=== PATIENT | female | born 1985 | race Caucasian/White ===

== ENCOUNTER 2018-08-13 08:02 | Day surgery (SDC) | payer MEDICAID ==
[2018-08-13] MEDS ORDERED: LACTATED RINGER'S 1,000 ML IV (09:00)
[2018-08-13 09:22] LABS: ADD MAN DIFF? NO
[2018-08-13 09:28] LABS: BASOPHILS % 0.3 % (0.0-2.0); EOSINOPHILS % 0.4 % (0.0-7.0); HEMATOCRIT 36.5 % (37.0-47.0); HEMOGLOBIN 12.1 g/dl (12.0-16.0); LYMPHOCYTES # 3.4 10^3/ul (0.8-2.9); LYMPHOCYTES % 34.9 % (15.0-51.0); MEAN CORPUSCULAR HEMOGLOBIN 32.4 pg (29.0-33.0); MEAN CORPUSCULAR HGB CONC 33.2 g/dl (32.0-37.0); MEAN CORPUSCULAR VOLUME 97.6 fl (82.0-101.0); MEAN PLATELET VOLUME 9.4 fl (7.4-10.4); MONOCYTE # 0.8 10^3/ul (0.3-0.9); MONOCYTES % 7.7 % (0.0-11.0); NEUTROPHIL # 5.5 10^3/ul (1.6-7.5); NEUTROPHILS % 56.3 % (39.0-77.0); PLATELET COUNT 370 10^3/UL (140-415); RED BLOOD COUNT 3.74 10^6/ul (4.20-5.40); RED CELL DISTRIBUTION WIDTH 13.1 % (11.5-14.5)
[2018-08-13 09:28] LABS: WHITE BLOOD COUNT 9.7 10^3/ul (4.8-10.8)
[2018-08-13] MEDS ORDERED: FENTAnyl 50 MCG/ML VIAL (09:28)
[2018-08-13] MEDS ORDERED: PROPOFOL 40 ML (09:28)
[2018-08-13] MEDS ORDERED: LIDOCAINE 2% (SDV) 5 ML INJ (09:30)
[2018-08-13] MEDS ORDERED: METOCLOPRAMIDE 10 MG INJ (09:42)
[2018-08-13] MEDS ORDERED: ONDANSETRON 4 MG INJ (09:57)
[2018-08-13] MEDS ORDERED: METHYLERGONOVINE 0.2 MG INJ (09:57)
[2018-08-13] MEDS ORDERED: KETOROLAC 30 MG INJ (10:01)
[2018-08-13] MEDS ORDERED: OXYCODONE/ACETAMINOPHEN (5/325) TAB PO ×2 (10:30)
[2018-08-13] MEDS ORDERED: LABETALOL HCL 20MG INJ IV (10:30)
[2018-08-13] MEDS ORDERED: FENTAnyl 50 MCG/ML VIAL IV (10:30)
[2018-08-13] MEDS: ONDANSETRON 4 MG INJ IV (10:39)
[2018-08-13] MEDS: FENTAnyl 50 MCG/ML VIAL IV (10:39)
== END 2018-08-13 12:15 | disposition home or self-care (01) ==
LOC: SDS 08:02
DX: O02.1 Missed abortion (principal)
CPT/HCPCS: 59820; 85025; 86850; 86900; 86901; 88305